=== PATIENT | female | born 1950 | race Two or more races ===

== ENCOUNTER 2021-10-15 15:33 | Emergency (ER) | payer MEDICARE, OTHER ==
[~2021-10-15] VITALS: Ht 154.9 cm; Wt 70.8 kg
[~2021-10-15 15:33] MED LIST: FEBU40TA PO; FOLI0.8T2 PO; FURO40TA5 PO; NEBI5TAB8 PO; RIVA10TA PO
[2021-10-15 15:47] VITALS: BP 150/85
--- NOTE | 2021-10-15 16:14 | NUR ---
DR DENNIS AT BEDSIDE
[2021-10-15] MEDS ORDERED: AZIT250T PO (17:03)
[2021-10-15] MEDS ORDERED: GUAI-671 PO (17:03)
== END 2021-10-15 18:19 | disposition home or self-care (01) ==
LOC: ER 15:35
DX: J40 Bronchitis, not specified as acute or chronic (principal); I10 Essential (primary) hypertension; I48.91 Unspecified atrial fibrillation; Z98.890 Other specified postprocedural states; Z88.8 Allergy status to other drugs, medicaments and biological substances; Z86.73 Personal history of transient ischemic attack (TIA), and cerebral infarction without residual deficits; Z79.899 Other long term (current) drug therapy
CPT/HCPCS: 71045-TC